=== PATIENT | female | born 1945 | race Caucasian/White ===

== ENCOUNTER 2017-03-23 18:18 | Emergency (ER) | payer MEDICARE ==
[~2017-03-23] VITALS: Ht 152.4 cm; Wt 75.8 kg
[~2017-03-23 18:18] MED LIST: HYDROCODONE1 TABLET PO
--- OUTSIDE RECORDS SUMMARY | 2017-03-23 18:25 | External Medical Summary Rpt | CCD ---
Author Author [employer] Organization [employer] Address Unknown Phone Unavailable Purpose Continuity of Care Document - through 2016
--- OUTSIDE RECORDS SUMMARY | 2017-03-23 18:25 | External Medical Summary Rpt | CCD ---
Author Author , GILMER SCHERER Address Unknown Phone [email or web address] Immunization Name Date Rout CVX Reac Dose Comm Prov Is Faci e tion ent ider Refu lity Give sed n Tdap 10-2 Intr 115 0.5 Hist [facility] , 6-20 amus mL oric ART5 ART5 Adso 17 cula al 71 71 rbed r Info rmat ion - Sour ce Unsp ecif ied PPV2 10-2 Intr 33 0.5 Hist [facility] No [facility] 3 6-20 amus mL oric ART5 ART5 17 cula al 71 71 r Info rmat ion - Sour ce Unsp ecif ied PCV1 10-2 Intr 133 0.5 Hist [facility] No [facility] 3 0-20 amus mL oric ART3 ART3 16 cula al [id number] r Info rmat ion - Sour ce Unsp ecif ied
--- OUTSIDE RECORDS SUMMARY | 2017-03-23 18:25 | External Medical Summary Rpt | CCD ---
Author Author GILMER Address Unknown Phone Purpose Continuity of Care Document - through 2016
--- OUTSIDE RECORDS SUMMARY | 2017-03-23 18:25 | External Medical Summary Rpt | CCD ---
Author Author , GILMER SCHERER Address Unknown Phone [email or web address] Immunization Name Date Rout CVX Reac Dose [...]
--- OUTSIDE RECORDS SUMMARY | 2017-03-23 18:25 | External Medical Summary Rpt | CCD ---
Author Author GILMER Address Unknown Phone [email or web address] Purpose Continuity of Care Document - through 2016
[2017-03-23] MEDS ORDERED: FISH OIL-VIT D1 EACH PO (18:36)
[2017-03-23] MEDS ORDERED: VITAMIN D1000 IU PO (18:36)
--- NOTE | 2017-03-23 19:26 | Urgent Treatment Center Report ---
History of Present Issue Date/Time Seen by Provider 03/23/171919 Visit Reason Pt arrived:Walked Presenting Problem:PT IS C/O COUGH, CONGESTION, SINUS PRESSURE AND ACHES. Location if Accident: Onset of symptoms date/time:/ or onset unknown for:MEDICAL HX UNKNOWN Have you (or family members/close friends) recently traveled outside the [place]? N If Yes, where/when: Have you had exposure to infectious disease within the past month? TB? Other? Specify: Patient state that she has been having sinus pain and pressure, cough and pressure behind her eyes that has continued to get worse over the last few weeks State that she thought it would get better but has continued to get worse State that she feels like her face is sore State that she feels pressure behind her eyes ALLERGIES Coded Allergies: Penicillins (RASH/HIVES 01/04/16) Sulfa (Sulfonamide Antibiotics) (HIVES/RASH 01/04/16) naproxen (From ANAPROX) (HIVES/RASH 01/04/16) Uncoded Allergies: BANDAIDS (I-RASH 01/04/16) Home Medications Reported Medications Omega3/Dha/Epa/Fish Oil/Vit D3 (Fish Oil-Vit D3 Softgel) 1 EACH PO TID CHOLECALCIFEROL (VITAMIN D3) (Vitamin D3) 1,000 IUNITS PO DAILY History Medical History General CAD? No Angina: Yes [place]: No Hypertension? No Hyperlipidemia? Yes CHF? No DVT? No PE? No COPD? No Asthma? No Anemia? No GERD? No Gastric ulcers? No GI Bleed? No Hernia? No Thyroid Problems? No Hypothyroidism? No CVA? No Seizures? No Diabetes? No Renal Insuffiency? No UTI? No Stones? No BPH? No GB Disease: No Nephritic Syndrome? No Asplenia? No Hepatitis? No Sickle Cell Disease? No Arthritis? No Migraines? No Cataracts? No Glaucoma? No MRSA? No HIV? No TB? No Anxiety? No Depression? No Cancer? No More? No Immunization HX DT/Tetanus > 10 YRS Surgical Hx Previous Surgery?Y VARICOSE VEIN LASER SURG PARTIAL HYSTERECT APPENDECT TUBAL BREAST;CYST REMOVAL Social History Smoking Hx Smoker: Never Smoker Tobacco: No Alcohol Alcohol: No Review of Systems All Other Systems Reviewed and Negative Constitutional chills, fever ENT nose congestion. Respiratory cough Physical Exam Vital Signs Vital Signs Date Time Temp Pulse Resp B/P Pulse O2 O2 Flow FiO2 Ox Delivery Rate 03/23 1834 98.0 77 20 106/66 97 General Appearance normal appearance, WD/WN, no apparent distress Ear, Nose, Throat sinus pain/drainage, nasal congestion, Tenderness noted over frontal sinus Complains of pressure feeling in sinuses, reports dark yellowish/ green drainage Respiratory Status Yes: trachea midline, chest symmetrical. No: respiratory distress. Lung Sounds bilateral: normal breath sounds, lungs clear. Cardiovascular normal exam Neurologic alert, normal exam, oriented x 3 Medical Decision Making LABS/Meds/Orders Pt receiving controlled substance in ED? No Results/Orders Laboratory Tests 03/23/171838: Influenza Type A Ag NOT DETECTED, Influenza Type B Ag NOT DETECTED Orders Procedure Date/time Status [facility] FLU A,B 03/23 1839 Complete Departure Departure Time of Disposition 1935 Disposition DC Home or Self Care(routine) Clinical Impression Primary Impression: Sinusitis Qualifiers: Sinusitis location: unspecified location Chronicity: acute Recurrence: not specified as recurrent Qualified Code: J01.90 - Acute sinusitis, unspecified Condition STABLE Referrals VALE EVERETT APRN (Family): 2 Days-Call Office if no improvement or worsening of symptoms Patient Instructions DI for Sinusitis, Sinus Headache, Sinusitis, Sinusitis ( Alternative Therapy) Additional Instructions Start antibiotic. Sinus infections may take 2-3 days to notice much improvement so be sure to use conservative measures as discussed for symptoms Ok to continue Sudafed Flonase 2 spray in each nostril daily to help with nasal congestion, sinus an ear pressure/inflammation Lots of Fluids Sleep elevated Humidifer/vaporizer Augmentin can cause GI effects. Probiotics may help to prevent these symptoms Discharge Counseling Counseled pt/family regarding diagnosis, test results, medications/RX, home care, follow up needs Prescriptions Current Visit Scripts Doxycycline Hyclate (Vibramycin) 100 MG PO BID #20 CAP Methylprednisolone (Medrol Dose Haja) 4 MG PO UD #1 HAJA TAKE DIRECTED ON PACKAGING Fluticasone Propionate (Flonase 50 Mcg Nasal [place]) 2 SPRAY NA DAILY #1 BOT at 1941
[2017-03-23] MEDS ORDERED: FLONASE 50 MCG16 GM (19:41)
[2017-03-23] MEDS ORDERED: DOXYCYCLINE HY100 M4 PO (19:41)
[2017-03-23] MEDS ORDERED: MEDROL 4MG. DOSE4 MG PO (19:41)
[2017-03-23 19:42] VITALS: BP 106/66
== END 2017-03-23 19:46 | disposition home or self-care (01) ==
LOC: UTC 18:18
DX: J01.90 Acute sinusitis, unspecified (principal); Z79.899 Other long term (current) drug therapy